=== PATIENT | male | born 1945 | race Two or more races ===

== ENCOUNTER 2023-07-10 06:31 | Day surgery (SDC) | payer MEDICARE, OTHER, SELFPAY ==
[2023-07-07 12:09] VITALS: BMI 33.4
[2023-07-10] VITALS (8 sets, daily range): BP systolic 122–155; BP diastolic 63–88; BMI 33.4
[2023-07-10] MEDS: CYSVIEW KIT 100 MG INTRAVES (14:20)
[2023-07-10] MEDS: NORMOSOL-R 1000 IV (14:39)
[2023-07-10] MEDS: Pyridium 200 MG PO (16:37)
[2023-07-10] MEDS: DETROL LA 4 MG PO (16:37)
== END 2023-07-10 17:15 | disposition home or self-care (01) ==
LOC: SDS 06:31
PROVIDERS: ATTENDING PHYSICIAN Surgery
DX: C67.3 Malignant neoplasm of anterior wall of bladder (principal); N32.81 Overactive bladder
CPT/HCPCS: 52235; C9738; 88307; A9589

== ENCOUNTER → 2024-09-13 08:09 | Outpatient (REF) | payer MEDICARE, OTHER, SELFPAY ==
[2024-09-13 09:03] LABS: Hematocrit 47.1 % (39.0-52.0); Hemoglobin 15.4 g/dL (13.0-18.0); Mean Corp Hgb Conc. 32.7 g/dL (33.0-37.0); Mean Corpuscular Hgb 29.2 pg (27.0-31.0); Mean Corpuscular Volume 89.4 fL (80.0-94.0); Mean Platelet Volume 9.4 fL (7.4-10.4); Platelet Count 222 10^3/uL (130-400); Red Blood Cell Count 5.27 10^6/uL (4.70-6.10); White Blood Cell Count 5.5 10^3/uL (4.8-10.8)
[2024-09-13 09:45] LABS: Blood Urea Nitrogen 13 mg/dl (9-20); Calcium 9.7 mg/dl (8.4-10.2); Carbon Dioxide 28 mmol/L (22-30); Chloride 107 mmol/L (98-107); Glucose 86 mg/dl (70-99); Potassium 4.5 mmol/L (3.5-5.1); Sodium 141 mmol/L (135-145); eGFR > 60.00
== END ==
LOC: SDSPAT 08:09
PROVIDERS: ATTENDING PHYSICIAN Surgery; FAMILY PHYSICIAN Family Medicine
DX: Z01.818 Encounter for other preprocedural examination (principal)
CPT/HCPCS: 36415; 80048; 85027; 93005

== ENCOUNTER 2024-09-16 06:15 | Day surgery (SDC) | payer MEDICARE, OTHER, SELFPAY ==
[2024-09-13 13:56] VITALS: BMI 29.4
[2024-09-16] VITALS (8 sets, daily range): BP systolic 130–151; BP diastolic 73–94; BMI 29.4
[2024-09-16] MEDS: NORMOSOL-R/PLASMALYTE-A 1000 IV (14:12)
[2024-09-16] MEDS: Pyridium 200 MG PO (15:47)
[2024-09-16] MEDS: DETROL LA 4 MG PO (15:47)
== END 2024-09-16 16:25 | disposition home or self-care (01) ==
LOC: SDS 06:15
PROVIDERS: ATTENDING PHYSICIAN Surgery
DX: C67.2 Malignant neoplasm of lateral wall of bladder (principal)
CPT/HCPCS: 52235; C9738; 88307

== ENCOUNTER → 2024-10-04 10:20 | Outpatient (REF) | payer MEDICARE, OTHER, SELFPAY ==
[2024-10-04 18:36] LABS: Urine Albumin 3+ (Neg - Trace); Urine Bilirubin Negative (Negative); Urine Character Slightly Cloudy (Clear); Urine Color Yellow; Urine Glucose Negative (Negative); Urine Ketone Negative (Negative); Urine Leukocyte 1+ (Negative); Urine Nitrite Negative (Negative); Urine Occult Blood 4+ (Negative); Urine Urobilinogen Negative (Neg - 1+)
[2024-10-04 19:30] LABS: Urine Bacteria Few (Negative); Urine Red Blood Cell 30-40 /HPF (0-2); Urine White Cell 21-25 /HPF (0-5); Urine Yeast Moderate (Negative)
== END ==
LOC: CLAB 10:20
PROVIDERS: ATTENDING PHYSICIAN Surgery
DX: N39.0 Urinary tract infection, site not specified (principal)
CPT/HCPCS: 81003; 81015; 87086